=== PATIENT | female | born 1960 | race Caucasian/White ===

== ENCOUNTER 2017-05-20 06:34 | Day surgery (SDC) | payer OTHER ==
[~2017-05-20] VITALS: Ht 170.2 cm; Wt 81.6 kg
[~2017-05-20 06:34] MED LIST: AMITRIPTYLIN50 MG PO; APAP/HYDROCO1 TA1 PO; CELEBREX200 MG PO; DETROL LA2 MG PO; DOCUSATE CAL240 MG PO; ENOXAPARIN40 MG/0.1 SC; FERROUS SULF325 M1 PO; GABAPENTIN100 MG PO; GABAPENTIN300 M2 PO; MELOXICAM15 MG PO; NAPROXEN500 MG PO; PERCOCET 5/325M1 TAB PO; PHENERGAN25 MG/TAB PO; TYLOPHEN500 MG PO; ZESTRIL10 M1 PO
[2017-05-20] MEDS ORDERED: ECOTRIN M/S500 MG PO (10:50)
[2017-05-20] MEDS ORDERED: NORCO1 TA2 PO (10:50)
[2017-05-20] MEDS ORDERED: KEFLEX500 MG PO (10:50)
[2017-05-20 11:36] VITALS: BP 135/72
== END 2017-05-20 12:05 | disposition home or self-care (01) | DRG 494 ==
LOC: ORM 06:34
PROVIDERS: ATTEND Podiatrist Foot & Ankle Surgery
PROC: 0SBG4ZZ Excision of Left Ankle Joint, Percutaneous Endoscopic Approach (ICD-10-PCS; principal; 2017-05-20)
PROC: 0MQR4ZZ Repair Left Ankle Bursa and Ligament, Percutaneous Endoscopic Approach (ICD-10-PCS; 2017-05-20)
DX: M25.372 Other instability, left ankle (principal); I10 Essential (primary) hypertension; S93.492S Sprain of other ligament of left ankle, sequela; X58.XXXS Exposure to other specified factors, sequela

== ENCOUNTER 2017-12-31 06:34 | Day surgery (SDC) | payer OTHER ==
[~2017-12-31 06:34] MED LIST changes: +ECOTRIN M/S500 MG PO; +KEFLEX500 MG PO; +NORCO1 TA2 PO
[2017-12-31 08:59] VITALS: BP 150/92
== END 2017-12-31 08:55 | disposition home or self-care (01) | DRG 951 ==
LOC: ENDO 06:34
PROVIDERS: ATTEND Surgery
PROC: 0DJD8ZZ Inspection of Lower Intestinal Tract, Via Natural or Artificial Opening Endoscopic (ICD-10-PCS; principal; 2017-12-31)
DX: Z12.11 Encounter for screening for malignant neoplasm of colon (principal); G62.9 Polyneuropathy, unspecified; K64.4 Residual hemorrhoidal skin tags; I10 Essential (primary) hypertension; Z80.0 Family history of malignant neoplasm of digestive organs

== ENCOUNTER 2020-03-20 14:52 | Observation (INO) | payer OTHER ==
[~2020-03-20] VITALS: Ht 172.7 cm; Wt 94.5 kg
[~2020-03-20 14:52] MED LIST changes: +COZAAR50 MG PO; +ECOTRIN LOW STR81 MG PO; +ONDANSETRON4 MG PO; +PERCOCET 10/31 COMBO PO
--- NOTE | 2020-03-20 15:00 | NUR ---
PT AMBULATED TO ROOM WITH STEADY GAIT FOR BEDSIDE TRIAGE
--- NOTE | 2020-03-20 15:10 | NUR ---
PT PRESENTS WITH NO PAIN BUT STATES THAT TWO-THREE DAYS AGO SHE HAD CHEST PAIN OF 8/10 THAT RADIATED UP NECK AND EARS. PT DID NOT FEEL ANYTHING TODAY BUT DECIDED TO GET CHECKED OUT. PT DENIES ANY OTHER PAINS OR S/S. PERRLA. WILL CONTINUE TO MONITOR.
--- NOTE | 2020-03-20 16:00 | NUR ---
PT RESTING ON STRETCHER, NO NEW COMPLAINTS STATES PAIN REMAINS RESOLVED SINCE YESTERDAY.
[2020-03-20 16:01] LABS: HEMATOCRIT 40.4 % (37.0-47.0); HEMOGLOBIN 12.6 g/dl (12.0-16.0); IMMATURE GRANULOCYTES 0.2 % (0.0-5.0); MEAN CELL VOLUME 92.2 fL CALC (80.0-100.0); MEAN CORPUSCULAR HGB 28.8 pG CALC (26.0-32.0); MEAN CORPUSCULAR HGB CONC 31.2 g/dL CAL (32.0-36.0); NEUT# 5.07 thou/uL (2.00-7.15); RED BLOOD COUNT 4.38 mill/uL (4.20-5.60); RED CELL DISTRI WIDTH 13.4 % (11.5-15.5)
[2020-03-20 16:05] LABS: URINE BILIRUBIN - DIPSTICK NEGATIVE (NEGATIVE); URINE BLOOD DIPSTICK NEGATIVE (NEGATIVE); URINE COLOR YELLOW; URINE GLUCOSE - DIPSTICK NEGATIVE (NEGATIVE); URINE KETONE NEGATIVE (NEGATIVE); URINE LEUK ESTERASE NEGATIVE (NEGATIVE); URINE NITRITE - DIPSTICK NEGATIVE (Negative); URINE PROTEIN - DIPSTICK NEGATIVE (NEG-TRACE); URINE SPECIFIC GRAVITY <=1.005; URINE UROBILINOGEN - DIPSTICK 0.2 E.U./dL (0.2)
[2020-03-20] MEDS ORDERED: CALCIUM 1000 + D PO (16:22)
[2020-03-20 16:24] LABS: ALBUMIN 4.8 g/dL (3.2-5.0); ALKALINE PHOSPHATASE 70 u/l (38-126); ANION GAP 13 (6-22 (CALC)); BILIRUBIN, TOTAL 0.6 mg/dL (0.0-1.4); BUN 23 mg/dL (8-23); BUN/CREATININE RATIO 22 (12-20 (CALC)); CARBON DIOXIDE 25 mmol/l (22-30); CHLORIDE 100 mmol/l (95-108); GFR 56 ML/MIN (>=60 (CALC)); GFR FOR AFR.AMER. > 60 ML/MIN (>=60 (CALC)); LIPASE 57 u/l (23-300); POTASSIUM 4.3 mmol/l (3.5-5.1); SGOT/AST 44 u/l (9-36); SODIUM 134 mmol/l (137-146); TOTAL PROTEIN 7.9 g/dL (6.3-8.2)
--- NOTE | 2020-03-20 17:00 | NUR ---
PT NOTIFIED OF PENDING ADMISSION. PT ASKED FOR MORE BLANKETS. REQUEST GRANTED. CALL LIGHT WITHIN REACH
--- NOTE | 2020-03-20 18:13 | NUR ---
REPORT CALLED TO BRICE IN [facility]
--- NOTE | 2020-03-20 18:26 | NUR ---
PT ARRIVED FROM THE ER VIA STRETCHE ACCOMPANIED BY STAFF, IV SITE, TELE IN PLACEC. PT ABLE TO AMBULATE TO THE BATHROOM NO PROBLEM.
[2020-03-20 18:33] VITALS: BP 163/96
--- NOTE | 2020-03-20 18:33 | NUR ---
PT TRANSPORTED TO MED SURG BY STRETCHER STABLE AND IN NO DISTRESS. PT CARE ASSUMED TO BRICE Admission Note Report Given to: Transported by: Wheelchair X Stretcher Transported with: X Nurse Transporter X Patent IV O2 X Ichthyologist Location: ICU X MS2
--- NOTE | 2020-03-20 18:40 | NUR ---
ASSESSMENT IS COMPLETED; IV SITE IS FREE FROM REDNESS OR EDEMA. HR IS REG,PULSES ARE STRONG X4, ABD IS SOFT WITH ACTIVE BS. BREATH SOUNDS ARE CLEAR,BILATERALLY. TELE MONITOR IN PLACE. NO DISTRESS NOTED. CONTINUE TO OSBERVE AND MONITOR.
--- NOTE | 2020-03-20 19:00 | NUR ---
RECEIVED REPORT FROM NURSE NARVAEZ PATIENT RESTING IN BED, TALKING ON THE PHONE DENIES PAIN OR DISCOMFORTS CALL LIGHT AT REACH
--- NOTE | 2020-03-20 19:30 | NUR ---
PATIENT ALERT ORIENTED ABLE TO MAKE NEEDS KNONW, AMBULATORY, WITH SALINE LOCK ON RTAC PATENT AND FLUSHES WELL, REMAINS ON KASSIDY, DENIES CHEST DISCOMFORTS LBM 03/20, CALL LIGHT AT REACH.
[2020-03-20 23:44] VITALS: BP 117/79
--- NOTE | 2020-03-21 00:57 | NUR ---
PATIENT APPEARS TO BE SLEEPING WITH EYES CLOSED, BREATHING EVEN AND UNLABORED, CALL LIGHT AT REACH.
[2020-03-21 04:15] VITALS: BP 125/79
--- NOTE | 2020-03-21 05:19 | NUR ---
PATIENT APPEARS TO BE RESTING IN BED WITH EYES CLOSED NO DISCOMFORTS NOTED AT THIS TIME, CALL LIGHT AT REACH.
--- NOTE | 2020-03-21 07:00 | NUR ---
REPORT RECEIVED FROM ROBY CHANDLER. PT AMBULATING IN ROOM; ALERT AND ORIENTED. DENIES CHEST PAIN. RESPIRATIONS EVEN AND UNLABORED ON ROOM AIR. VERBALIZING DESIRE TO BE DISCHARGED HOME. PLAN OF CARE REVIEWED. PT ENCOURAGED TO VERBALIZE ANY CONCERNS. STATES UNDEERSTANDING. SAFETY MEASURES IN PLACE. CALL LIGHT WITHIN REACH.
[2020-03-21 07:05] LABS: CHOLESTEROL HDL RATIO 2.9 (<4.4 (CALC))
[2020-03-21 07:30] VITALS: BP 112/77
--- NOTE | 2020-03-21 09:15 | NUR ---
PNA VAC ADMINISTERED TO RIGHT ARM; PT TOLERATED WELL. DECLINED COZAAR; PT STATES THAT SHE TAKES IT ONCE A DAY AT HS.
[2020-03-21 10:50] VITALS: BP 122/62
--- NOTE | 2020-03-21 11:29 | NUR ---
IV site discontinued, cath intact. No edema , no redness, voices no discomfort.
--- NOTE | 2020-03-21 11:34 | NUR ---
DR. BULLOCK AT BEDSIDE FOR EVAL.
--- NOTE | 2020-03-21 11:49 | NUR ---
Discharge instructions given. Patient verbalizes understanding of same. Discharged in stable condition via Ambulatory to Home. All belongings sent with pt.
== END 2020-03-21 11:45 | disposition home or self-care (01) | DRG 313 ==
LOC: ED 14:52 → ED-I 16:20 → ED 16:42 → ED-I 16:43 → MS2 18:13
PROVIDERS: Family Medicine; ADMIT Internal Medicine; ATTEND Internal Medicine
PROC: 3E0234Z Introduction of Serum, Toxoid and Vaccine into Muscle, Percutaneous Approach (ICD-10-PCS; principal; 2020-03-21)
DX: R07.9 Chest pain, unspecified (principal); M54.2 Cervicalgia; R68.84 Jaw pain; I10 Essential (primary) hypertension; Z56.6 Other physical and mental strain related to work; Z23 Encounter for immunization; Z20.828 Contact with and (suspected) exposure to other viral communicable diseases
CPT/HCPCS: G0378

== ENCOUNTER 2022-12-10 10:40 | Day surgery (SDC) | payer BC ==
[~2022-12-10] VITALS: Ht 172.7 cm; Wt 64.0 kg
[~2022-12-10 10:40] MED LIST changes: +CALCIUM 1000 + D PO; +CITALOPRAM10 MG/5 M1 PO; +LOVASTATIN10 M1 PO; +XANAX0.5 MG PO
[2022-12-10] MEDS ORDERED: LIPITOR10 M1 PO (11:02)
[2022-12-10 14:58] VITALS: BP 155/86
== END 2022-12-10 14:40 | disposition home or self-care (01) | DRG 496 ==
LOC: ORM 10:40
PROVIDERS: ATTEND Podiatrist Foot & Ankle Surgery
PROC: 0QPP04Z Removal of Internal Fixation Device from Left Metatarsal, Open Approach (ICD-10-PCS; principal; 2022-12-10)
PROC: 0QPR04Z Removal of Internal Fixation Device from Left Toe Phalanx, Open Approach (ICD-10-PCS; 2022-12-10)
PROC: 0QBP0ZZ Excision of Left Metatarsal, Open Approach (ICD-10-PCS; 2022-12-10)
PROC: 0J9R0ZZ Drainage of Left Foot Subcutaneous Tissue and Fascia, Open Approach (ICD-10-PCS; 2022-12-10)
DX: T84.213A Breakdown (mechanical) of internal fixation device of bones of foot and toes, initial encounter (principal); L76.32 Postprocedural hematoma of skin and subcutaneous tissue following other procedure; L76.34 Postprocedural seroma of skin and subcutaneous tissue following other procedure; M96.0 Pseudarthrosis after fusion or arthrodesis; M20.12 Hallux valgus (acquired), left foot; M25.775 Osteophyte, left foot; Y83.1 Surgical operation with implant of artificial internal device as the cause of abnormal reaction of the patient, or of later complication, without mention of misadventure at the time of the procedure
CPT/HCPCS: J0131; J0690

== ENCOUNTER 2023-02-26 06:06 | Day surgery (SDC) | payer BC ==
[~2023-02-26] VITALS: Ht 172.7 cm; Wt 65.8 kg
[~2023-02-26 06:06] MED LIST changes: +HYZAAR1 TA1 PO; +LIPITOR10 M1 PO
[2023-02-26 07:40] VITALS: BP 140/86
== END 2023-02-26 08:06 | disposition home or self-care (01) | DRG 951 ==
LOC: ENDO 06:06
PROVIDERS: ATTEND Surgery
PROC: 0DJD8ZZ Inspection of Lower Intestinal Tract, Via Natural or Artificial Opening Endoscopic (ICD-10-PCS; principal; 2023-02-26)
DX: Z12.11 Encounter for screening for malignant neoplasm of colon (principal); K64.4 Residual hemorrhoidal skin tags; K64.8 Other hemorrhoids; I10 Essential (primary) hypertension; G62.9 Polyneuropathy, unspecified; Z80.0 Family history of malignant neoplasm of digestive organs

== ENCOUNTER 2024-08-02 20:08 | Emergency (ER) | payer MEDICARE, MEDICAID ==
[~2024-08-02] VITALS: Ht 172.7 cm; Wt 69.0 kg
[2024-08-02 21:18] VITALS: BP 122/75
== END 2024-08-02 21:18 | disposition home or self-care (01) ==
LOC: ED 20:08
DX: I83.891 Varicose veins of right lower extremity with other complications (principal)